=== PATIENT | female | born 1980 | race African-American/Black ===

== ENCOUNTER 2020-04-11 13:15 | Emergency (ER) | payer BC ==
--- NOTE | 2020-04-11 13:30 | NUR ---
CALLED TO TRIAGE,NO ANSWER
--- NOTE | 2020-04-11 14:18 | NUR ---
CALLED PATIENT'S CELLPHONE INFORMING HER THAT ED IS READY FOR HER TO BE SEEN.
--- NOTE | 2020-04-11 14:27 | NUR ---
CALLED IN ED WAITING ROOM NO RESPONSE.
== END 2020-04-11 14:31 | disposition home or self-care (01) ==
LOC: ER 13:15
DX: R07.0 Pain in throat (principal); Z53.21 Procedure and treatment not carried out due to patient leaving prior to being seen by health care provider

== ENCOUNTER 2023-01-20 13:16 | Emergency (ER) | payer BC, OTHER ==
[~2023-01-20] VITALS: Ht 175.3 cm; Wt 63.5 kg
[2023-01-20 14:08] LABS: APPEARANCE,URINE CLEAR (CLEAR); BILIRUBIN,URINE NEGATIVE (NEGATIVE); BLOOD, URINE TRACE-INTA Ery/uL (NEGATIVE); COLOR,URINE YELLOW (YELLOW); KETONES,URINE 1+ mg/dL (NEGATIVE); LEUKOCYTE ESTERASE ,URINE NEGATIVE (NEGATIVE); NITRITE, URINE NEGATIVE (NEGATIVE); PH,URINE 5.5 (5.0-8.0); PROTEIN,URINE 1+ mg/dl (NEGATIVE); UGLUCOSE NEGATIVE (NEGATIVE); UROBILINOGEN,URINE 0.2 EU/dL (0.2)
[2023-01-20 14:09] LABS: ADD URINE CULTURE NO; BACTERIA,URINE None seen /HPF (None Seen); PREGNANCY TEST URINE QUAL NEGATIVE (NEGATIVE); RBC,URINE 0-2 /HPF (0-2); SQUAMOUS EPITHELIAL CELL,UR Rare /HPF (None Seen); WBC,URINE 0-2 /HPF (0-3)
[2023-01-20 14:10] LABS: BASOPHILS # (AUTO) 0.1 K/uL (0.0-0.2); BASOPHILS % (AUTO) 1.4 % (0.0-2.0); EOSINOPHILS % (AUTO) 0.1 % (0.0-6.0); HEMATOCRIT 41 % (33-45); HEMOGLOBIN 13.8 g/dL (11.5-14.8); LYMPHOCYTES # (AUTO) 0.8 K/uL (0.8-4.8); LYMPHOCYTES % (AUTO) 19.8 % (20.0-44.0); MEAN CORPUSCULAR HEMOGLOBIN 31 PG (26.0-33.0); MEAN CORPUSCULAR HGB CONC 34 g/dl (31.0-36.0); MEAN CORPUSCULAR VOLUME 91 fL (82-100); MONOCYTES # (AUTO) 0.2 K/uL (0.1-1.30); MONOCYTES % (AUTO) 5.7 % (2.0-12.0); NEUTROPHILS # (AUTO) 3.1 K/uL (1.8-8.9); PLATELET COUNT (AUTO) 274 K/uL (150-450); RED BLOOD CELL COUNT(AUTO) 4.53 MIL/uL (4.0-5.2); RED CELL DISTRIBUTION WIDTH 12.9 % (11.5-15.0); WHITE BLOOD COUNT (AUTO) 4.2 K/uL (4.3-11.0)
[2023-01-20 14:11] LABS: CALCIUM, SERUM 9.6 mg/dL (8.5-10.1); POTASSIUM 3.1 mmol/L (3.5-5.1)
[2023-01-20 14:14] LABS: ALBUMIN 4.9 g/dL (3.4-5.0); BILIRUBIN,DIRECT 0.1 mg/dL (0.0-0.2); BILIRUBIN,TOTAL 0.6 mg/dL (0.2-1.0)
[2023-01-20] MEDS ORDERED: MORPHINE SULFATE INJ 2 MG/ML DISP.SYRIN ONE (14:27)
[2023-01-20] MEDS ORDERED: ONDANSETRON HCL/PF 4 MG/2 ML VIAL ONE (14:27)
[2023-01-20] MEDS ORDERED: MORPHINE SULFATE INJ 2 MG/ML DISP.SYRIN IV ONE (14:30)
[2023-01-20] MEDS ORDERED: IV NS 0.9% 1,000 ML BAG IV ONE (14:30)
[2023-01-20] MEDS ORDERED: ONDANSETRON HCL/PF 4 MG/2 ML VIAL IVP ONE (14:30)
[2023-01-20] MEDS ORDERED: POTASSIUM CHLORIDE 20 MEQ TAB.PRT.SR PO ONE (14:52)
[2023-01-20] MEDS: POTASSIUM CHLORIDE 20 MEQ TAB.PRT.SR PO ONE (15:00)
[2023-01-20 16:15] VITALS: BP 131/81; TEMP 98; O2SAT 100
== END 2023-01-20 16:16 | disposition home or self-care (01) ==
LOC: ER 13:23
DX: R10.12 Left upper quadrant pain (principal)
CPT/HCPCS: 99285; 74176; 96374; 96361; 96375; 85025; 80048; 83690; 80076; 84703; 81001; 36415; J2405; J7030; J2270

== ENCOUNTER 2023-02-01 21:56 | Emergency (ER) | payer OTHER ==
[~2023-02-01] VITALS: Ht 175.3 cm; Wt 61.7 kg
[2023-02-01 23:49] LABS: APPEARANCE,URINE CLEAR (CLEAR); BILIRUBIN,URINE NEGATIVE (NEGATIVE); BLOOD, URINE TRACE-INTA Ery/uL (NEGATIVE); COLOR,URINE YELLOW (YELLOW); KETONES,URINE 1+ mg/dL (NEGATIVE); LEUKOCYTE ESTERASE ,URINE NEGATIVE (NEGATIVE); NITRITE, URINE NEGATIVE (NEGATIVE); PROTEIN,URINE NEGATIVE (NEGATIVE); UGLUCOSE NEGATIVE (NEGATIVE); UROBILINOGEN,URINE 0.2 EU/dL (0.2)
[2023-02-01 23:53] LABS: PREGNANCY TEST URINE QUAL NEGATIVE (NEGATIVE)
[2023-02-02] MEDS ORDERED: CEFTRIAXONE 500 MG VIAL IM ONE (00:30)
[2023-02-02] MEDS ORDERED: METRONIDAZOLE 500 MG TABLET PO ONE (00:30)
[2023-02-02] MEDS ORDERED: AZITHROMYCIN 250 MG TABLET PO ONE (00:30)
[2023-02-02 00:37] LABS: ADD URINE CULTURE NO; BACTERIA,URINE None seen /HPF (None Seen); RBC,URINE 0-2 /HPF (0-2); SQUAMOUS EPITHELIAL CELL,UR Rare /HPF (None Seen); WBC,URINE NONE SEEN /HPF (0-3)
[2023-02-02] MEDS ORDERED: METRONIDAZOLE 500 MG TABLET ONE (00:52)
[2023-02-02] MEDS ORDERED: AZITHROMYCIN 250 MG TABLET ONE (00:53)
[2023-02-02] MEDS ORDERED: CEFTRIAXONE 500 MG VIAL ONE (01:41)
[2023-02-02 02:24] VITALS: BP 121/87; TEMP 97.7; O2SAT 100
== END 2023-02-02 02:24 | disposition home or self-care (01) ==
LOC: ER 22:02
DX: A64 Unspecified sexually transmitted disease (principal); R30.0 Dysuria; Z60.2 Problems related to living alone
CPT/HCPCS: 99284; 84703; 81001; 96372; 87081; 87070; 87210; 87110; J0696